=== PATIENT | female | born 1975 ===

== ENCOUNTER 2017-03-26 13:15 | Emergency (ER) | payer MEDICAID ==
--- NOTE | ~2017-03-26 | ER ---
PATIENT'S NAME: FRANKIE YUNG [facility] AGE: 41 Y [address] ROOM: [place] [address] LOCATION: [facility] ADMIT DATE: 03/26/2017 ER/Outpatient Report DISCHARGE DATE: 03/26/2017 FAMILY PHYSICIAN: PHYSICIAN, NO ATTENDING PHYSICIAN: Alvaro Hudson Time of Arrival: 1315 hours. Time of Evaluation: 1317 hours. CHIEF COMPLAINT: Chest pain, and alcohol intoxication. HISTORY OF PRESENT ILLNESS: The patient is a 41-year-old female, who presents to the emergency department today with a chief complaint of chest pain, alcohol intoxication. She reports this started about 2 hours prior to arrival. She reports she is very anxious. She reports she has a history anxiety and this feels like her previous anxiety. She does report some shortness of breath. No diaphoresis. No nausea or vomiting. Denies any ripping or tearing sensations. Not maximal in onset. PAST MEDICAL HISTORY: 1. PE. 2. Anxiety. 3. Bipolar. 4. Depression. PAST SURGICAL HISTORY: None. SOCIAL HISTORY: The patient smokes, drinks alcohol daily. Denies any illicit drug use. ALLERGIES: NO KNOWN DRUG ALLERGIES. MEDICATIONS: Please see list. PRIMARY CARE DOCTOR: None. REVIEW OF SYSTEMS: All systems are reviewed by myself are negative with the exception of those discussed in the HPI and past medical history. PATIENT'S NAME: FRANKIE YUNG [facility] AGE: 41 Y [address] ROOM: [place] [address] LOCATION: [facility] ADMIT DATE: 03/26/2017 ER/Outpatient Report DISCHARGE DATE: 03/26/2017 FAMILY PHYSICIAN: PHYSICIAN, NO ATTENDING PHYSICIAN: Alvaro Hudson PHYSICAL EXAMINATION: VITAL SIGNS: Weight 105.8 kg. Blood pressure 123/86, pulse 84, respiratory rate 18, temperature 97.3, and oxygen saturation 96% on room air. GENERAL: The patient is a 41-year-old female, appears stated age. She is anxious. HEENT: Normocephalic and atraumatic. Pupils are equal, round, and reactive to light. Oropharynx is clear. NECK: Supple. There is no nuchal rigidity. CARDIOVASCULAR: Regular rate and rhythm. No murmurs, rubs, or gallops. LUNGS: Clear to auscultation bilaterally. No wheezes, rales, or rhonchi. ABDOMEN: Soft, nontender, and nondistended. No rebound, rigidity, or guarding. MUSCULOSKELETAL: The patient moves all 4 extremities. SKIN: Warm and dry. There is no pretibial edema noted. LABORATORY DATA AND IMAGING STUDIES: Labs and x-rays are obtained. CBC is normal. Coags are normal. D-dimer is normal. EKG shows sinus rhythm, rate of 86, normal axis, normal interval. No ST elevation, ST depression, or T-wave inversions. This is interpreted by myself. CMP is unremarkable. LFTs are normal. Alcohol is 0.189. Cardiac enzymes are normal. TSH is normal. Free T4 is normal. ProBNP is normal. Acetaminophen is normal. Urine drug screen is negative. IMPRESSION: 1. Suicidal ideation. 2. Chest pain. 3. Alcohol intoxication. 4. Initial visit. EMERGENCY DEPARTMENT COURSE: The patient was brought back to the examination room. Seen and evaluated by myself. IV was established. Laboratory analysis and imaging are obtained as described above. The patient is given 4 baby aspirin. She is given 1 mg Ativan as well as 30 mg of Toradol IV. The patient after being here in the emergency department, further history being obtained, was recently at [facility]. Apparently she just recently lost her mother. She is currently homeless and apparently is getting bullied at the homeless assisted. Upon further questioning, the patient does report that she is suicidal. She does not have a plan at this time. When questioned as to whether she has auditory or visual hallucinations, the patient reports she is seeing some things but will not elaborate at all. [facility] and [facility] the patient here in the emergency department. She has talked with Dr. Tesfaye, the psychiatrist. They do feel the patient will require admission for inpatient psychiatric evaluation. I have PATIENT'S NAME: FRANKIE YUNG [facility] AGE: 41 Y [address] ROOM: [place], [place] [address] LOCATION: ED ADMIT DATE: 03/26/2017 ER/Outpatient Report DISCHARGE DATE: 03/26/2017 FAMILY PHYSICIAN: PHYSICIAN, NO ATTENDING PHYSICIAN: Alvaro Hudson discussed the results of the testing with her. The patient is transported to [facility] in stable condition by ambulance. DISPOSITION: The patient was discharged in stable condition. DO AUSTEN PARKINSON/jaylyn /[id number] d: 03/26/[id number] t: 03/31/17 0917, OUTPATIENT REPORT
[~2017-03-26 13:15] MED LIST changes: -NICORETTE 2 MG2 MG PO; -TOPAMAX25 MG PO; -TREXAN (REVIA)50 MG PO; -WELLBUTRIN SR150 MG PO
[2017-03-26 13:32] LABS: BASOPHIL # 0.1 K/uL (0.0-0.2); BASOPHIL % 1.6 %; EOSINOPHIL # 0.4 K/uL (0.0-0.5); EOSINOPHIL % 4.7 %; HEMOGLOBIN 12.1 g/dL (10.0-15.0); IMMATURE GRANULOCYTE % 0.4 %; LYMPHOCYTE # 3.2 K/uL (0.8-4.0); LYMPHOCYTE % 38.4 %; MCH 25.2 pg (27.0-34.0); MCHC 31.8 gm/dL (32.0-36.5); MONOCYTE # 0.7 K/uL (0.0-1.0); MONOCYTE % 8.6 %; MPV 9.2 fl (9.4-12.4); NEUTROPHIL # (ANC) 3.9 K/uL (1.8-7.8); NEUTROPHIL % 46.3 %; NRBC % 0 /100WBC (0-0.00); PLATELET COUNT 392 K/uL (150-450); RBC 4.81 M/uL (3.50-5.50); RDW-CV 20.3 % (11.9-14.6); WBC 8.4 K/uL (4.0-11.0)
[2017-03-26 13:44] LABS: INR - (THERAPEUTIC) 1.04 (0.92-1.07); PROTIME 10.9 SECONDS (9.8-11.4); PTT 28 SECONDS (25-32)
[2017-03-26 13:55] LABS: ALK PHOS 94 IU/L (33-138); ALT 23 IU/L (12-78); ANION GAP 12.8 (10.0-19.0); AST 18 IU/L (10-40); BLOOD UREA NITROGEN 9 mg/dL (6-24); CALCIUM 8.4 mg/dL (8.5-10.5); CHLORIDE 110 mMol/L (96-110); CO2 22 mMol/L (22-32); CPK 154 IU/L (21-215); CREATININE 0.6 mg/dL (0.5-1.1); ESTIMATED GFR (MDRD EQUATION) > 60; POTASSIUM 3.8 mMol/L (3.7-5.1); SODIUM 141 mMol/L (135-145); TOTAL BILIRUBIN 0.3 mg/dL (0.0-1.5)
[2017-03-26 15:23] LABS: BILIRUBIN URINE NEGATIVE (NEGATIVE); BLOOD URINE NEGATIVE /UL (NEGATIVE); GLUCOSE URINE NEGATIVE (NEGATIVE); KETONE URINE NEGATIVE (NEGATIVE); LEUKOCYTES URINE NEGATIVE /UL (NEGATIVE); NITRITE URINE NEGATIVE (NEGATIVE); PH URINE 6.5 (4.0-8.0); PROTEIN URINE NEGATIVE (NEGATIVE); SPEC GRAVITY URINE 1.005 (1.003-1.035); UROBILINOGEN URINE NORMAL (NORMAL)
[2017-03-26 15:25] LABS: COLOR URINE YELLOW (YELLOW); TURBIDITY URINE CLEAR (CLEAR)
[2017-03-26 15:38] LABS: OPIATES NEGATIVE (NEGATIVE)
[2017-03-26 15:42] LABS: AMPHETAMINE NEGATIVE (NEGATIVE)
[2017-03-26 15:43] LABS: BARBITURATE NEGATIVE (NEGATIVE); COCAINE NEGATIVE (NEGATIVE)
[2017-04-01] MEDS ORDERED: WELLBUTRIN SR150 MG PO (07:41)
[2017-04-01] MEDS ORDERED: TREXAN (REVIA)50 MG PO (07:43)
[2017-04-01] MEDS ORDERED: NICORETTE 2 MG2 MG PO (07:46)
[2017-04-01] MEDS ORDERED: TOPAMAX25 MG PO (07:48)
== END 2017-03-26 16:00 | disposition disaster alternative care site (69) ==
LOC: GMED 13:15
PROVIDERS: Emergency Medicine
DX: R07.9 Chest pain, unspecified (principal); R45.851 Suicidal ideations; F10.129 Alcohol abuse with intoxication, unspecified; F41.9 Anxiety disorder, unspecified; F31.9 Bipolar disorder, unspecified
CPT/HCPCS: G0480; J1885; J2060

== ENCOUNTER → 2017-03-26 | Outpatient (CLI) | payer MEDICAID ==
[~2017-03-26] MED LIST: BUSPIRONE HCL15 MG PO; FOLIC ACID1 MG PO; LEVOTHROID (S100 MCG PO; MINIPRESS2 MG PO; MULTI COMPLETE1 EACH PO; NEURONTIN600 MG PO; NICORETTE 2 MG2 MG PO; PAXIL40 M1 PO; SEROQUEL100 MG PO; TENORMIN25 MG PO; THIAMINE HCL100 MG PO; TOPAMAX25 MG PO; TREXAN (REVIA)50 MG PO; WELLBUTRIN SR150 MG PO
== END | disposition disaster alternative care site (69) ==
LOC: GAMB 16:06
DX: R45.850 Homicidal ideations (principal); F32.9 Major depressive disorder, single episode, unspecified; F10.20 Alcohol dependence, uncomplicated; R07.9 Chest pain, unspecified; R45.851 Suicidal ideations
CPT/HCPCS: A0425; A0428